=== PATIENT | male | born 1960 | race Caucasian/White ===

== ENCOUNTER 2018-03-10 06:56 | Day surgery (SDC) | payer OTHER ==
[~2018-03-10 06:56] MED LIST: ACETAMINOPHEN 1,000 MG/100 ML BTL IV ONE
[2018-03-10] MEDS ORDERED: LIDOCAINE 1% W/EPI 1:200,000 MPF 30ML SQ ONE (06:57)
[2018-03-10] MEDS ORDERED: *PACU ONLY* KETAMINE HCL 10 MG/ML (20ML) VIAL IV ONE (06:57)
[2018-03-10] MEDS ORDERED: FENTANYL PF 100MCG/2ML VIAL IV ONE (06:57)
[2018-03-10] MEDS ORDERED: MIDAZOLAM HCL 2MG/2ML VIAL IV ONE (06:57)
[2018-03-10] MEDS ORDERED: DEXAMETHASONE PRESERVATIVE FREE 10MG/ML VIAL IV ONE (06:57)
[2018-03-10] MEDS ORDERED: PROPOFOL 10 MG/ML VIAL IV ONE (06:57)
[2018-03-10] MEDS ORDERED: BUPIVACAINE 0.5% W/EPI MPF 30 ML VIAL IVP ONE (06:57)
--- NOTE | 2018-03-11 05:35 | Operative Note ---
DATE OF SURGERY: 03/10/2018. PREOPERATIVE DIAGNOSIS: CERVICAL SPONDYLOSIS WITHOUT MYELOPATHY, ICD-10 CODE M47.812. POSTOPERATIVE DIAGNOSIS: CERVICAL SPONDYLOSIS WITHOUT MYELOPATHY, ICD-10 CODE M47.812. PROCEDURE: Radiofrequency rhizotomy of the bilateral cervical facets 4-5, 5-6, and 6-7. ANESTHESIA: Local sedation. ANESTHESIA PROVIDER: Jania Petersen CRNA. INDICATIONS: This patient presents with primary neck pain. Examination shows tenderness in the cervical spine. Range of motion causes pain to the neck with extension. Diagnostic studies show multilevel spondylosis and endplate spurring. The previous facet and rhizotomy series provided greater than 75 percent percent pain control. Due to the failure of therapy and the success of the facet series and rhizotomy, he is here for repeat rhizotomy. DESCRIPTION OF PROCEDURE: Intravenous lines, vital sign monitoring, and intravenous sedation. Prepped and draped with sterile technique. Cervical facets in the area of pain at 4-5, 5-6, and 6-7 were marked and infiltrated. A 22-gauge rhizotomy cannula was positioned. Stimulation trial was conducted and rhizotomy burn was performed. Local with anti-inflammatory into the sites. Topical antibiotic and sterile dressing were applied. We will monitor and evaluate. cc: Ashleigh Howe D.O. JOB NUMBER: [id number] MTDD
== END 2018-03-10 09:36 | disposition home or self-care (01) ==
LOC: SUR 06:56
PROVIDERS: ATTEND Pain Medicine Interventional Pain Medicine
DX: M47.812 Spondylosis without myelopathy or radiculopathy, cervical region (principal); E78.00 Pure hypercholesterolemia, unspecified; K21.9 Gastro-esophageal reflux disease without esophagitis